=== PATIENT | female | born 1970 | race American Indian/Alaskan Native ===

== ENCOUNTER 2021-07-24 15:37 | Emergency (ER) | payer OTHER ==
[2021-07-24] MEDS ORDERED: amLODIPine 5 MG TAB PO ONE (16:02)
--- NOTE | 2021-07-24 16:06 | Emergency Department Report ---
HPI - General Chief Complaint: Nausea/Vomiting/Diarrhea Time Seen by Provider: 07/24/21 16:01 - HPI HPI: This is a 50-year-old -Iranian female who presents to the emergency department with a complaint of 2 episodes of large watery stool this morning and the complaint of generalized fatigue and weakness. Patient says that she consumed blueberries mixed with Moringa powder, which she has eaten previously without any issues. The patient also says that she has some intermittent palpitations. This has been going on for "a while", and she says that it usually occurs around the time of her cycle. The patient says that she is perimenopausal. Patient presents with elevated blood pressure but has been out of her medication for about 24 hours. She takes amlodipine 10 mg, but says that even when she is compliant it does not work for her. She denies any fever, chest pain, shortness of breath, cough, abdominal pain, nausea/vomiting. She wadsworth s not taken anything further for her symptoms prior to presentation today. She denies any tobacco use. No recent travel or sick contacts at home. The patient is not vaccinated against COVID-19. ED Past Medical Hx - Past Medical History Hx Hypertension: Yes - Surgical History Additional Surgical History: D&C - Social History Smoking Status: Never Smoker Substance Use Type: None - Medications Home Medications: Home Medications Medication Instructions Recorded Confirmed Last Taken Type amLODIPine 10 mg PO DAILY #30 tab 07/24/21 Unknown Rx hydroCHLOROthiazide [Hctz] 12.5 mg PO QDAY #30 capsule 07/24/21 Unknown Rx ED Review of Systems ROS: Stated complaint: WEAKNESS Other details as noted in HPI Comment: All other systems reviewed and negative Constitutional: weakness. denies: chills, fever Eyes: denies: eye pain, vision change ENT: denies: ear pain, throat pain Respiratory: denies: cough, shortness of breath Cardiovascular: palpitations. denies: chest pain Gastrointestinal: diarrhea. denies: abdominal pain, vomiting Genitourinary: denies: dysuria, discharge Musculoskeletal: denies: back pain, arthralgia Skin: denies: rash, lesions Neurological: denies: headache, numbness, paresthesias Physical Exam - Physical Exam Vital Signs: Vital Signs 07/24/21 15:41 Temperature 98.7 F Pulse Rate 81 Respiratory 18 Rate Blood Pressure 186/108 O2 Sat by Pulse 98 Oximetry Physical Exam: GENERAL: The patient is well-developed well-nourished. HENT: Normocephalic. Atraumatic. Patient has moist mucous membranes. EYES: Extraocular motions are intact. No nystagmus. NECK: Supple. Trachea is midline. CHEST/LUNGS: Clear to auscultation. There is no respiratory distress noted. HEART/CARDIOVASCULAR: Regular. There is no tachycardia. There is no murmur. ABDOMEN: Abdomen is soft, nontender. Patient has normal bowel sounds. There is no abdominal distention. SKIN: Skin is warm and dry. NEURO: The patient is awake, alert, and oriented. The patient is cooperative. The patient has no focal neurologic deficits. Normal speech. Cranial nerves II through XII grossly intact. No facial asymmetry. MUSCULOSKELETAL: There is no tenderness or deformity. There is no limitation range of motion. ED Course Vital Signs 07/24/21 15:41 Temperature 98.7 F Pulse Rate 81 Respiratory 18 Rate Blood Pressure 186/108 O2 Sat by Pulse 98 Oximetry ED Medical Decision Making - Lab Data Result diagrams: 07/24/21 16:09 07/24/21 16:09 Lab Results 07/24/21 07/24/21 07/24/21 Range/Units 16:09 16:09 16:09 WBC 6.3 (4.5-11.0) K/mm3 RBC 4.64 (3.65-5.03) M/mm3 Hgb 11.3 (10.1-14.3) gm/dl Hct 35.4 (30.3-42.9) % MCV 76 L (79-97) fl MCH 24 L (28-32) pg MCHC 32 (30-34) % RDW 15.0 (13.2-15.2) % Plt Count 352 (140-440) K/mm3 Lymph % (Auto) 30.9 (13.4-35.0) % Carver % (Auto) 7.0 (0.0-7.3) % Eos % (Auto) 1.3 (0.0-4.3) % Baso % (Auto) 0.7 (0.0-1.8) % Lymph # (Auto) 2.0 (1.2-5.4) K/mm3 Carver # (Auto) 0.4 (0.0-0.8) K/mm3 Eos # (Auto) 0.1 (0.0-0.4) K/mm3 Baso # (Auto) 0.0 (0.0-0.1) K/mm3 Seg Neutrophils % 60.1 (40.0-70.0) % Seg Neutrophils # 3.8 (1.8-7.7) K/mm3 Sodium 138 (137-145) mmol/L Potassium 4.9 (3.6-5.0) mmol/L Chloride 104.1 (98-107) mmol/L Carbon Dioxide 26 (22-30) mmol/L Anion Gap 13 mmol/L BUN 9 (7-17) mg/dL Creatinine 0.7 (0.6-1.2) mg/dL Estimated GFR > 60 ml/min BUN/Creatinine Ratio 13 % Glucose 103 H (65-100) mg/dL Calcium 9.4 (8.4-10.2) mg/dL Total Bilirubin 0.30 (0.1-1.2) mg/dL AST 14 (5-40) units/L ALT 8 (7-56) units/L Alkaline Phosphatase 65 (35-129) units/L Total Protein 7.2 (6.3-8.2) g/dL Albumin 4.0 (3.9-5) g/dL Albumin/Globulin Ratio 1.3 % TSH 1.480 (0.270-4.200) mlU/mL - EKG Data -: EKG Interpreted by Ma EKG shows normal: sinus rhythm, axis, intervals, QRS complexes, ST-T waves Rate: bradycardia (59 bpm) - EKG Data When compared to previous EKG there are: previous EKG unavailable Interpretation: normal EKG - Medical Decision Making This patient presents to the emergency department with a complaint of 2 large episodes of diarrhea this morning, as well as some generalized weakness/fatigue. The patient also presents with very elevated blood pressure after being noncompliant with her medication over the past 24 hours. She does not have any focal, motor or sensory deficits and her cranial nerves are intact. Heart and lung sounds are normal to auscultation and the patient does not appear in any respiratory or acute distress. She was given a dose of amlodipine. Labs have been mostly unremarkable including CBC, CMP, normal thyroid function, and urinalysis. Upon reevaluation the patient's blood pressure has improved. She will be discharged home to follow-up with primary care. She will continue with her amlodipine, but I have also added 12.5 mg of HCTZ. We discussed staying away from foods that are high in salt and caffeinated products and keeping a blood pressure log. The patient has not had any further episodes of diarrhea. Critical Care Time: No Critical care attestation.: If time is entered above; I have spent that time in minutes in the direct care of this critically ill patient, excluding procedure time. ED Disposition Clinical Impression: Asymptomatic hypertensive urgency Diarrhea Qualifiers: Diarrhea type: unspecified type Qualified Code(s): R19.7 - Diarrhea, unspecified Fatigue Qualifiers: Fatigue type: unspecified Qualified Code(s): R53.83 - Other fatigue Disposition: 01 HOME / SELF CARE / HOMELESS Is pt being admited?: No Condition: Stable Additional Instructions: Please follow-up with a primary care physician in the next few days. I have given you a referral for a local primary care physician, Dr. Burger, and a primary care clinic, [facility]. I have refilled your amlodipine. I am also adding a second blood pressure medication called hydrochlorothiazide, HCTZ. This patient is taken once per day, usually in the morning. Try to stay away from foods that are high in salt and caffeinated products. Keep a blood pressure log. Return to the emergency department with any worsening of your symptoms, new or concerning symptoms not addressed during this current emergency department visit, or with any acute distress. Prescriptions: amLODIPine 10 mg PO DAILY #30 tab hydroCHLOROthiazide [Hctz] 12.5 mg PO QDAY #30 capsule Referrals: JAVED BURGER MD [Staff Physician] - 3-5 Days [facility] [Provider Group] - 3-5 Days Time of Disposition: 18:05
[2021-07-24 16:43] LABS: Alanine Aminotransferase 8 units/L (7-56); Blood Urea Nitrogen 9 mg/dL (7-17); Calcium 9.4 mg/dL (8.4-10.2); Hemolysis Index 5
[2021-07-24 16:49] LABS: Basophils % (Auto) 0.7 % (0.0-1.8); Eosinophils # (Auto) 0.1 K/mm3 (0.0-0.4); Eosinophils % (Auto) 1.3 % (0.0-4.3); Hematocrit 35.4 % (30.3-42.9); Hemoglobin 11.3 gm/dl (10.1-14.3); Lymphocytes % (Auto) 30.9 % (13.4-35.0); Mean Corpuscular HGB Conc 32 % (30-34); Mean Corpuscular Volume 76 fl (79-97); Monocytes # (Auto) 0.4 K/mm3 (0.0-0.8); Platelet Count 352 K/mm3 (140-440); Red Blood Count 4.64 M/mm3 (3.65-5.03)
[2021-07-24 16:56] LABS: BUN/Creatinine Ratio 13
[2021-07-24 18:04] VITALS: BP 162/109
--- NOTE | 2021-07-25 10:15 | Electrocardiograph Report ---
[facility] Test Date: 2021-07-24 Test Time: 16:21:18 Pat Name: WHITNEY MELLO Department: Room: Gender: F [employer] Programmer: JOAQUIN : 1970 Requested By: JCARLOS RIOJAS Order Number: [id number] Reading MD: Krishna Rico Measurements Intervals [place] Rate: 59 P: 53 IL: 150 QRS: 52 QRSD: 71 T: 37 QT: 415 QTc: 411 Interpretive Statements Sinus bradycardia No previous ECG available for comparison Electronically Signed On 07-25-2021 10:14:55 EDT by Krishna Rico
== END 2021-07-24 18:47 | disposition home or self-care (01) ==
LOC: ED 15:37
DX: I16.0 Hypertensive urgency (principal); R19.7 Diarrhea, unspecified; R53.83 Other fatigue; Z98.890 Other specified postprocedural states
CPT/HCPCS: 36415; 80053; 84443; 85025; 93005; 99283

== ENCOUNTER 2021-08-12 11:04 | Outpatient (CLI) | payer OTHER ==
[2021-08-12 13:19] LABS: Bilirubin,Urine NEG (Negative); Blood,Urine NEG (Negative); Color,Urine Yellow (Yellow); Mucus,Urine 2+ /HPF; Protein,Urine <15 mg/dL mg/dL (Negative); Urobilinogen,Urine < 2.0 mg/dL (<2.0)
[2021-08-15 11:13] LABS: Vitamin D, 25-OH, D2 <4 ng/mL
== END 2021-08-12 11:05 | disposition home or self-care (01) ==
LOC: LAB 11:04
PROVIDERS: ATTEND Internal Medicine
DX: Z13.1 Encounter for screening for diabetes mellitus (principal); D64.9 Anemia, unspecified; E55.9 Vitamin D deficiency, unspecified; R73.9 Hyperglycemia, unspecified
CPT/HCPCS: 36415; 81001; 82306; 82728; 83036; 83540